=== PATIENT | female | born 1985 | race Caucasian/White ===

== ENCOUNTER 2019-03-03 14:58 | Emergency (ER) | payer SELFPAY ==
[~2019-03-03] VITALS: Ht 162.6 cm; Wt 49.9 kg
== END 2019-03-03 16:54 | disposition home or self-care (01) ==
LOC: ED 14:58
DX: R25.2 Cramp and spasm (principal); F17.200 Nicotine dependence, unspecified, uncomplicated
CPT/HCPCS: 96374; 99284-25; J1630

== ENCOUNTER 2022-03-10 14:38 | Emergency (ER) | payer OTHER ==
[~2022-03-10] VITALS: Ht 162.6 cm; Wt 49.9 kg
--- NOTE | 2022-03-11 17:36 | EKG ---
[facility] [address] [facility] [place] [address] Signed Normal sinus rhythm with sinus arrhythmia Right atrial enlargement Borderline ECG No previous ECGs available Confirmed by DION RODRIGUEZ MD ([id number] on 03/11/2022 5:36:15 PM Electronically Signed By: DION RODRIGUEZ MD 03/11/22 1736 PATIENT NAME: JONAH ROSS Electrocardiogram DATE OF : 83 PHYSICIAN: DION RODRIGUEZ MD REPORT #: [id number] REPORT IS CONFIDENTIAL AND NOT TO BE RELEASED WITHOUT AUTHORIZATION
== END 2022-03-10 18:30 | disposition home or self-care (01) ==
LOC: ED 14:38
DX: R41.82 Altered mental status, unspecified (principal); F15.10 Other stimulant abuse, uncomplicated; F17.200 Nicotine dependence, unspecified, uncomplicated
CPT/HCPCS: 36415; 80048; 84703; 85025; 93005; 93010; 96361; 96374; 99285-25; G0480; J2060; J7040